=== PATIENT | male | born 1995 | race Caucasian/White ===

== ENCOUNTER 2018-07-18 02:48 | Emergency (ER) | payer SELFPAY ==
[2018-07-18] MEDS: CEFTRIAXONE 1 GM INJ IM (06:58)
[2018-07-18] MEDS: LIDOCAINE 1% (MPF) 5 ML VIAL INJ (06:58)
== END 2018-07-18 07:16 | disposition home or self-care (01) ==
LOC: FTE 02:48
DX: J02.0 Streptococcal pharyngitis (principal); F17.210 Nicotine dependence, cigarettes, uncomplicated
CPT/HCPCS: 96372; 99284-25